=== PATIENT | female | born 1990 | race Caucasian/White ===

== ENCOUNTER 2023-11-07 11:14 | Emergency (ER) | payer BC, SELFPAY ==
[2023-11-07 11:20] VITALS: BP 136/73; PULSE 81; RESP 18; TEMP 37; O2SAT 99
--- NOTE | 2023-11-07 12:11 | ED.URI ---
HPI - URI/Sore Throat General Chief Complaint: Upper Respiratory Infection Stated Complaint: cough/tight chest Time Seen by Provider: 11/07/23 12:12 Source: patient and RN notes reviewed Mode of arrival: ambulatory Limitations: no limitations History of Present Illness HPI Narrative: 33-year-old female who is 7 weeks presents with concern for productive cough, nasal congestion, drainage for 1 and half weeks. Reports last night she felt chest burning and shortness of breath when she laid flat. Reports she took a hot bath which helps. She reports she had an oxygen monitor and her oxygen saturation was 80% for short amount of time and then went back to normal the rest of the night. She denies any chest pain. Denies any current shortness of breath. Reports she has cough but it is mainly at night time. She reports copious postnasal drainage that she feels is soliciting her cough. She expresses an interest in avoiding any antibiotics or other medications at this time. She has not taken any [id number] medications MD elicited complaint: cough Related Data Home Medications Medication Instructions Recorded Confirmed vitamin-ferrous fumarate 1 cap PO DAILY 10/20/23 10/20/23 65 mg iron-folic acid 1 mg capsule Allergies Allergy/AdvReac Type Severity Reaction Status Date / Time No Known Allergies Allergy Verified 10/20/23 14:44 Review of Systems Review of Systems: CONSTITUTIONAL: Denies malaise, chills, sweats, or fever. EYES: Denies visual changes, redness, or discharge. ENT: Reports rhinorrhea, congestion, postnasal drainage, ear fullness. Denies sinus pain, otalgia and sore throat. CARDIOVASCULAR: Denies chest pain, palpitations, or edema. RESPIRATORY: Reports cough. Positional dyspnea. GASTROINTESTINAL: Denies abdominal pain, nausea, vomiting, diarrhea SKIN: Denies rash or itching. MUSCULOSKELETAL: Denies myalgia. NEUROLOGIC: Denies headache. All systems reviewed & are unremarkable except as noted in HPI and below PMFSH Past Medical History Medical History Abnormal Pap smear of cervix 09/10/12 ascus +hpv Breast cyst 06/03/18 breast lt breast cyst Surgical History Surgical History History of colposcopy with cervical biopsy 10/14/12 benign Family History Family History Mother Diabetes mellitus Hypertension Hypercholesterolemia Social History Social History (Updated 10/20/23 @ 14:49 by KAYDEN Deras) Smoking status: Never smoker Second hand tobacco smoke exposure: No Alcohol intake: never Substance use: never Substance use type: does not use Living arrangements: other Additional living arrangements comments: spouse Occupation/Education: occupation Additional occupation/education comments: post office Gender identity (if verbalized by the patient): Female Sexual Orientation (if Verbalized by the Patient): Straight or Heterosexual Comments At time of signature, agree with nursing past medical, surgical, social and family history. There is no relevant family history pertinent to the presenting complaint Exam Narrative: GENERAL: Well-appearing, well-nourished, and in no acute distress. HEAD: Normocephalic EYES: PERRLA, conjunctivae clear ENT: Nares clear Mucous membranes moist. TM pearly rae with dull light reflex bilaterally; no tragal tenderness. Oropharynx not erythematous without lesions. Tonsils not enlarged and without exudate, no drooling, no hoarseness, no trismus, uvula midline. NECK: Supple. No lymphadenopathy CHEST: Clear to auscultation, breath sounds equal. No wheezing, rhonchi, rales, or stridor. No respiratory distress, speaks in full sentences. HEART: Regular rate and rhythm. No murmur heard. SKIN: Warm, dry, no rash. NEURO: Alert and oriented x3. PSYCH: No
== END 2023-11-07 12:28 | disposition home or self-care (01) ==
PROVIDERS: Emergency Provider Nurse Practitioner; PCP Physician Assistant
DX: O99.511 Diseases of the respiratory system complicating pregnancy, first trimester (principal); Z3A.01 Less than 8 weeks gestation of pregnancy; J40 Bronchitis, not specified as acute or chronic
CPT/HCPCS: 99213; G0463

== ENCOUNTER → 2023-11-26 15:14 | Outpatient (CLI) | payer BC, SELFPAY ==
--- NOTE | ~2023-11-26 | US_ITS ---
EXAMINATION: US OB <= 14 weeks fetus DATE: 11/26/2023 15:34 INDICATION: Threatened TECHNIQUE: Real-time pelvic ultrasound utilizing transabdominal probe was performed. The fay funk radiologist was not present for the study. COMPARISON: None. FINDINGS: The uterus measures 12.2 x 8.2 x 5.7 cm. There is an intrauterine gestational sac. A yolk sac and fe usha pole are identified. The crown rump length measures 4.1 cm, which correlates with an estimated ge stational age of 11 weeks and 0 days. heart motion is identified measuring 171 beats per minute (bpm) by M-mode Doppler. The ovaries are not visualized. There is no free fluid in the pelvis. IMPRESSION: 1. Single living fetus with heart rate of 171 bpm. 2. Gestational age by ultrasound of 11 weeks 0 day(s) +/- 7 day(s) with ultrasound estimated date of delivery ([facility]) of 06/16/2024. Reviewed, dictated and finalized at location [facility]. [facility] IMPRESSION: 1. Single living fetus with heart rate of 171 bpm. 2. Gestational age by ultrasound of 11 weeks 0 day(s) +/- 7 day(s) with ultras ound estimated date of delivery ([facility]) of 06/16/2024.
== END ==
PROVIDERS: PCP Physician Assistant; Visit Provider Obstetrics & Gynecology
DX: O20.0 Threatened abortion (principal); Z3A.11 11 weeks gestation of pregnancy
CPT/HCPCS: 76801